=== PATIENT | male | born 1965 | race Caucasian/White ===

== ENCOUNTER 2018-08-28 14:53 | Emergency (ER) | payer OTHER ==
[~2018-08-28] VITALS: Ht 165.1 cm; Wt 85.0 kg
[2018-08-28 15:01] VITALS: Ht 165.1 cm; Wt 85.0 kg
[2018-08-28] MEDS ORDERED: DIPHTH/TET/ACEL PERTUSS (ADULT) 0.5 ML VIAL IM* ONE (17:30)
[2018-08-28] MEDS ORDERED: CHLO118L3 TOP (17:36)
--- NOTE | 2018-08-28 17:43 | ERD ---
ER Documentation Chief Complaint Chief Complaint Complains of right foot pain status post stepping on a nail HPI 53-year-old male presents for right foot plantar side puncture wound with a nail at work today. Patient states that he stepped out of his truck and accidentally stepped onto a nail. The nail punctured through his boot sole. There is bleeding noted on the bottom side of his right foot. He states that he has mild pain, noted to be 5 out of 10. No fevers noted. Unknown tetanus status. No other modifying factors noted, no treatments tried at home. ROS All systems reviewed and are negative except as per history of present illness. Medications Home Meds Active Scripts Chlorhexidine Gluconate* (Chlorhexidine Gluconate*) 118 Ml Liquid, 10 ML TOP BID for puncture wound for 7 Days, #1 BOTTLE Prov:KATHY RUIZ DO 08/28/18 PMhx/Soc Medical and Surgical Hx: pt denies Medical Hx, pt denies Surgical Hx History of Surgery: No Anesthesia Reaction: No Hx Neurological Disorder: No Hx Respiratory Disorders: No Hx Cardiac Disorders: No Hx Psychiatric Problems: No Hx Miscellaneous Medical Probl: No Hx Alcohol Use: Yes (sometimes) Hx Substance Use: No Hx Tobacco Use: No Smoking Status: Never smoker FmHx Family History: No coronary disease Physical Exam Vitals Vital Signs Date Temp Pulse Resp B/P (MAP) Pulse Ox O2 O2 Flow FiO2 Time Delivery Rate 08/28/18 98.1 80 20 139/86 97 15:01 (103) Physical Exam Const: No acute distress Resp: Clear to auscultation bilaterally Cardio: Regular rate and rhythm, no murmurs Skin: No petechiae or rashes Ext: Right foot plantar side puncture wound noted, no active bleeding, no erythema or increased warmth noted Neur: Awake and alert Psych: Normal Mood and Affect Results 24 hrs Current Medications Medications Dose Sig/Sergei Start Time Status Last (Trade) Ordered Route PRN Stop Time Admin Dose Reason Admin Diphtheria/ 0.5 ml ONCE ONCE 08/28/18 DC Tetanus/Acell IM* 17:30 08/28/18 Pertussis 17:34 (Adacel) Procedures/MDM Medical Decision Making: Patient presents with a puncture wound over his sole of the right foot status post stepping on a nail. The nail pierced through his boot saw and created a puncture wound. Currently the bleeding is controlled. Patient appeared well on physical exam. There is no signs of infection over the right foot sole puncture wound area. Patient's tetanus status was updated in the ER. Wound cleansing was done with collecting. Patient educated regarding signs of infection and return to the ED if he gets signs or symptoms of infection Given that the wound is clean and no signs of erythema, prophylactic antibiotic was felt unwarranted. Prescription(s): Patient given prescription for chlorhexidine Patient advised to follow up with PCP in 1-2 days. Patient advised to return to ED for new or worsening symptoms. Patient stable on discharge from the ED. Disclaimer: Inadvertent spelling and grammatical errors are likely due to EHR/dictation software use and do not reflect on the overall quality of patient care. Also, please note that the electronic time recorded on this note does not necessarily reflect the actual time of the patient encounter. Departure Diagnosis: Primary Impression: Puncture wound Condition: Fair Patient Instructions: Puncture Wound, General Referrals: [facility] YOU HAVE RECEIVED A MEDICAL SCREENING EXAM AND THE RESULTS INDICATE THAT YOU DO NOT HAVE A CONDITION THAT REQUIRES URGENT TREATMENT IN THE EMERGENCY DEPARTMENT. FURTHER EVALUATION AND TREATMENT OF YOUR CONDITION CAN WAIT UNTIL YOU ARE SEEN IN YOUR DOCTORS OFFICE WITHIN THE NEXT 1-2 DAYS. IT IS YOUR RESPONSIBILITY TO MAKE AN APPOINTMENT FOR FOLOW-UP CARE. IF YOU HAVE A PRIMARY DOCTOR --you should call your primary doctor and schedule an appointment IF YOU DO NOT HAVE A PRIMARY DOCTOR YOU CAN CALL OUR PHYSICIAN REFERRAL HOTLINE AT IF YOU CAN NOT AFFORD TO SEE A PHYSICIAN YOU CAN CHOSE FROM THE FOLLOWING [facility] [id number] [facility]. [facility] [address] [facility] [facility] [address] [facility] [address] [facility]. [facility] [address] [facility] [facility]. [address] Additional Instructions: Call your primary care doctor TOMORROW for an appointment during the next 1-2 days.See the doctor sooner or return here if your condition worsens before your appointment time. Clean right foot wound with chlorhexadine, then soap and water twice a day for 7 days. KATHY RUIZ DO August 28, 2018 17:43
[2018-08-28 17:50] VITALS: BP 132/78; PULSE 76; RESP 18
== END 2018-08-28 17:52 | disposition home or self-care (01) ==
LOC: FTE 14:53
DX: S91.331A Puncture wound without foreign body, right foot, initial encounter (principal); W45.0XXA Nail entering through skin, initial encounter; Y92.89 Other specified places as the place of occurrence of the external cause; Z23 Encounter for immunization
CPT/HCPCS: 90471; 90715